=== PATIENT | female | born 1945 | race Caucasian/White ===

== ENCOUNTER 2024-09-06 22:22 | Emergency (ER) | payer MEDICARE, BC ==
[2024-09-06] MEDS ORDERED: HYDROmorphone 1 MG/ML Syringe SUBCUT ONE (22:45)
[2024-09-06] MEDS ORDERED: Sodium Chloride 0.9% 10 ML Syringe FLUSH PRN ×2 (22:47→23:18)
[2024-09-06] MEDS: HYDROmorphone 0.5 MG/0.5 ML Syringe IVPUSH ONE (22:55)
[2024-09-06] MEDS: Ketorolac 15 MG/ML SDV IVPUSH ONE (22:55)
[2024-09-06] MEDS ORDERED: Take Home: Acetaminophen/HYDROcodone 325-5 MG, 5 Tab Pack PO ONE (23:06)
[2024-09-06] MEDS: Lactated Ringers 1,000 ML IV ONE (23:30)
[2024-09-06 23:36] LABS: BASOPHILS PERCENT AUTO 0.4 % (0.2-1.2); EOSINOPHILS ABSOLUTE AUTO 0.1 x10^3/uL (0.0-0.5); EOSINOPHILS PERCENT AUTO 0.8 % (0.0-4.0); HEMATOCRIT 38.9 % (33.0-47.0); HEMOGLOBIN 13.2 g/dL (12.0-16.0); IMMATURE GRAN ABSOLUTE AUTO 0.04 x10^3/uL (0.00-0.07); LYMPHOCYTES ABSOLUTE AUTO 3.2 x10^3/uL (1.0-4.8); MEAN CORPUSCULAR HGB CONC 33.9 g/dL (32.0-36.0); MEAN CORPUSCULAR VOLUME 88.4 fL (78.0-93.0); MONOCYTES ABSOLUTE AUTO 0.9 x10^3/uL (0.0-0.8); MONOCYTES PERCENT AUTO 7.9 % (2.0-11.0); NEUTROPHILS PERCENT AUTO 62.5 % (50.0-80.0); PLATELET COUNT,PLT 232 x10^3/uL (130-400); WHITE BLOOD CELL COUNT,WBC 11.2 x10^3/uL (4.0-10.0)
[2024-09-06 23:55] LABS: INR 0.9 (0.9-1.1); PROTHROMBIN TIME 10.2 SEC (9.6-12.0)
[2024-09-06 23:59] LABS: A/G RATIO 1.35; ALBUMIN 3.5 g/dL (3.4-5.0); ANION GAP 10.3 mmol/L (5-15); BILIRUBIN TOTAL 0.5 mg/dL (0.2-1.0); CALCIUM 8.6 mg/dL (8.5-10.1); CREATININE 0.7 mg/dL (0.55-1.02); EST CRCL DRUG DOSING (CG) 54.08 mL/min; MAGNESIUM 2.2 mg/dL (1.8-2.4); POTASSIUM,K 4.3 mmol/L (3.5-5.1); PROTEIN TOTAL,TP 6.1 g/dL (6.4-8.2)
[2024-09-07] MEDS: Morphine 4 MG/ML Syringe IVPUSH ONE (00:04)
[2024-09-07] MEDS ORDERED: Famotidine 20 MG Tab PO ONE (00:23)
[2024-09-07] MEDS: Take Home: Acetaminophen/Codeine 300 MG/30 MG, 5 Tab Pack PO ONE (00:29)
[2024-09-07] MEDS: Take Home: Cyclobenzaprine 10 MG Tab, 4 Tab Pack PO ONE (00:30)
== END 2024-09-07 00:41 | disposition home or self-care (01) ==
LOC: VM.ED 22:22
DX: M54.42 Lumbago with sciatica, left side (principal); R55 Syncope and collapse; E86.0 Dehydration
CPT/HCPCS: 36415; 80053; 83735; 84484; 85025; 85610; 85730; 93005; 93010; 96374; 96375; 99284; 99284-25; A9270-GY; J1885; J2270; J7120